=== PATIENT | female | born 1955 | race Caucasian/White ===

== ENCOUNTER 2020-02-01 11:48 | Emergency (ER) | payer OTHER ==
[2020-02-01] MEDS ORDERED: TETRACAINE HCL 0.5% OPH SOLN 4 ML OS ONE (12:09)
--- NOTE | 2020-02-01 12:10 | ER Document Report ---
ED Medical Screen (RME) - General Chief Complaint: Eye Problem Stated Complaint: EYE PROBLEM/DISORIENTED Time Seen by Provider: 02/01/20 12:07 Primary Care Provider: NIKIA BARNETT MD [Primary Care Provider] - Follow up as needed Mode of Arrival: Ambulatory Information source: Patient Notes: 64-year-old female presents emergency department with complaints of she is seeing flashes of light in her peripheral vision with shadowing. Reports symptoms started last night. They come and go. Denies pain denies recent trauma. Reports she gets checked for glaucoma every 6 months because her pressures are off. No other complaint such as fever vomiting diarrhea. She reports she does feel off balance. I have greeted and performed a rapid initial assessment of this patient. A comprehensive ED assessment and evaluation of the patient, analysis of test results and completion of the medical decision making process will be conducted by additional ED providers. TRAVEL OUTSIDE OF THE [place] IN LAST 30 DAYS: No - Related Data Allergies/Adverse Reactions: butorphanol [From Stadol] Allergy (Verified 02/01/20 12:00) clindamycin Allergy (Verified 02/01/20 12:00) codeine Allergy (Verified 02/01/20 12:00) erythromycin base Allergy (Verified 02/01/20 12:00) oxaprozin [From Daypro] Allergy (Verified 02/01/20 12:00) oxycodone [From Percocet] Allergy (Verified 02/01/20 12:00) penicillin G Allergy (Verified 02/01/20 12:00) tramadol [From Ultram] Allergy (Verified 02/01/20 12:00) Home Medications: Encruze. Breo. Combivent. Albuterol. Ibuprofen. Olopatedine Past Medical History - Social History Chew tobacco use (# tins/day): No Frequency of alcohol use: Occasional Drug Abuse: None Psychiatric Medical History: Reports: Hx Depression Physical Exam - Vital signs Vitals: Temp Pulse Resp BP Pulse Ox 98.4 F 77 18 137/54 H 95 02/01/20 11:54 02/01/20 11:54 02/01/20 11:54 02/01/20 11:54 02/01/20 11:54 Course - Vital Signs Vital signs: Temp Pulse Resp BP Pulse Ox 98.4 F 77 18 137/54 H 95 02/01/20 11:54 02/01/20 11:54 02/01/20 11:54 02/01/20 11:54 02/01/20 11:54 Doctor's Discharge - Discharge Referrals: NIKIA BARNETT MD [Primary Care Provider] - Follow up as needed
--- NOTE | 2020-02-01 13:39 | ER Document Report ---
HPI - HPI Time Seen by Provider: 02/01/20 12:07 Pain Level: Denies Notes: Patient is a 64-year-old female who presents complaining of seeing a couple lines in the left peripheral vision and possible small flashes of light intermittently since yesterday. Patient states that her eye doctor has been checking her regularly for her pressures as they are borderline high. She does not wear contact lenses. She has not had any recent illness. She has not noticed any redness or drainage. She does not have any pain associated. Patient states that she does have a little blurring to the peripheral vision. She is otherwise feeling well. Denies any headache, fever, head injury, neck pain, changes in speech/mentation/hearing, URI, sore throat, chest pain, palpitations, syncope, cough, shortness of breath, wheeze, dyspnea, abdominal pain, nausea/vomiting/diarrhea, urinary retention, dysuria, hematuria, or rash. - ROS Systems Reviewed and Negative: Yes All other systems reviewed and negative Past Medical History - General Information source: Patient - Social History Smoking Status: Former Smoker Chew tobacco use (# tins/day): No Frequency of alcohol use: Occasional Drug Abuse: None Family History: None Patient has suicidal ideation: No Patient has homicidal ideation: No Psychiatric Medical History: Reports: Hx Depression Past Surgical History: Reports: Hx Appendectomy, Hx Tonsillectomy Vertical Provider Document - CONSTITUTIONAL Agree With Documented VS: Yes Notes: PHYSICAL EXAMINATION: GENERAL: Well-appearing, well-nourished and in no acute distress. A&Ox4 HEAD: Atraumatic, normocephalic. EYES: Pupils equal round and reactive to light, extraocular movements intact, sclera anicteric, conjunctiva wnl b/l w/o discharge or matting. Non-tender to palp of the globe and eye itself. No surrounding erythema or swelling noted. Wood's lamp/flourescein: No abrasion, laceration, ulceration, or mitzy sign noted. No obvious foreign body appreciated. Tonometry: 23 right eye, 22 left eye US of eye: unremarkable. no obvious acute retinal detachment noted ENT: EAC clear b/l. TM's intact b/l without erythema, fluid, or perforation. Nares patent and without discharge. oropharynx clear without exudates. No tonsilar hypertrophy or erythema. Moist mucous membranes. No sinus tenderness. Uvula midline. No palatine shift. No airway compromise. No drooling or hoarseness. NECK: Normal range of motion, supple without lymphadenopathy. No rigidity/meningismus. LUNGS: Breath sounds clear to auscultation bilaterally and equal. No wheezes rales or rhonchi. HEART: Regular rate and rhythm without murmurs, rubs, gallops. Musculoskeletal: Ext b/l: FROM to passive/active. Strength 5+/5. Extremities: No cyanosis, clubbing, or edema b/l. Peripheral pulses 2+. Capillary refill less than 3 seconds. NEUROLOGICAL: Cranial nerves grossly intact. Normal speech, normal gait. Normal sensory, motor exams PSYCH: Normal mood, normal affect. SKIN: Warm, Dry, normal turgor, no rashes or lesions noted. - INFECTION CONTROL TRAVEL OUTSIDE OF THE [place] IN LAST 30 DAYS: No Course - Re-evaluation Re-evalutation: 02/01/20 13:36 Patient is an afebrile, well-hydrated, 64-year-old female who presents to the emergency department with left eye blurriness. Vitals are acceptable without significant tachycardia, tachypnea, or hypoxia. PE is otherwise unremarkable. Patient is nontoxic-appearing and is able to tolerate p.o. without difficulty. No labs or imaging warranted. US unremarkable of the eye. Tonometry showed pressure of 23 left eye and 22 right eye, baseline per patient. Low suspicion for any retained corneal or lid foreign body, deep space infection including orbital cellulitis/abscess, acute glaucoma, penetrating globe injury, retinal detachment, meningitis, sepsis, fracture, compartment syndrome. Conservative measures otherwise for symptoms with proper handwashing. Recheck with your PCM in 3-5 days. Pt is able to f/u with ophthalmology in the next 1-2 days. Return to the ED with any worsening/concerning symptoms otherwise as reviewed in discharge. Patient is in agreement. Reviewed US prints with Dr. Mathis who is in agreement with dispo/plan. - Vital Signs Vital signs: Temp Pulse Resp BP Pulse Ox 98.4 F 77 18 137/54 H 95 02/01/20 11:54 02/01/20 11:54 02/01/20 11:54 02/01/20 11:54 02/01/20 11:54 Discharge - Discharge Clinical Impression: Blurring, left eye Condition: Stable Disposition: HOME, SELF-CARE Additional Instructions: Keep eyes clean Avoid scratching/touching eyes Wash hands regularly Use eye drops as directed Maintain adequate fluid intake tylenol/ibuprofen as needed over the counter cold medication as needed for symptoms F/u: with your PCM in 2-3 days for a recheck Call and schedule an appointment with your eye doctor in the next 1-2 days. Return to the ED with any worsening symptoms and/or development of fever, headache, changes in vision, eye pain, worsening eye redness, redness around the eyes, purulent discharge, sore throat, facial swelling, neck pain/stiffness, chest pain, palpitations, syncope, shortness of breath, trouble breathing, abdominal pain, n/v/d, blood in stool/urine, dysuria, or other worsening symptoms that are concerning to you. Forms: Elevated Blood Pressure Referrals: NIKIA BARNETT MD [Primary Care Provider] - Follow up as needed JOSELIN HICKS MD [ACTIVE STAFF] - Follow up as needed
[2020-02-01 13:58] VITALS: BP 142/67
== END 2020-02-01 13:56 | disposition home or self-care (01) ==
LOC: ER 11:48
DX: H53.8 Other visual disturbances (principal); Z87.891 Personal history of nicotine dependence
CPT/HCPCS: 99283; J3490

== ENCOUNTER → 2020-02-12 | Outpatient (CLI) | payer OTHER | LOC: OD 11:50 | PROVIDERS: ATTEND Internal Medicine Geriatric Medicine | DX: G43.B0 Ophthalmoplegic migraine, not intractable (principal) | CPT/HCPCS: 36415; 85652; 86140 ==

== ENCOUNTER 2020-08-20 15:00 | Emergency (ER) | payer OTHER ==
--- NOTE | 2020-08-20 15:57 | RADIOLOGY REPORT (SQ) ---
EXAM DESCRIPTION: CHEST SINGLE VIEW IMAGES COMPLETED DATE/TIME: 08/20/2020 3:40 pm REASON FOR STUDY: cough chest pressure COMPARISON: Two-view chest 10/29/2016 EXAM PARAMETERS: NUMBER OF VIEWS: One view. TECHNIQUE: Single frontal radiographic view of the chest acquired. RADIATION DOSE: NA LIMITATIONS: None. FINDINGS: LUNGS AND PLEURA: No opacities, masses or pneumothorax. No pleural effusion. MEDIASTINUM AND HILAR STRUCTURES: No masses. Contour normal. HEART AND VASCULAR STRUCTURES: Heart normal in size. Normal vasculature. BONES: No acute findings. HARDWARE: None in the chest. OTHER: No other significant finding. IMPRESSION: NO ACUTE RADIOGRAPHIC FINDING IN THE CHEST. TECHNICAL DOCUMENTATION: JOB ID: [id number] 2010 [employer]- All Rights Reserved Reading location - IP/workstation name: [email or web address]
[2020-08-20] MEDS ORDERED: IPRATROPIUM/ALBUTEROL 0.5-2.5 MG/3 ML AMPUL NEB ONE (16:40)
[2020-08-20] MEDS ORDERED: METHYLPREDNISOLONE INJ 125 MG/2 ML SDV IV ONE (16:40)
--- NOTE | 2020-08-20 16:42 | ER Document Report ---
ED Respiratory Problem - General Chief Complaint: Shortness Of Breath Stated Complaint: SHORTNESS OF BREATH/FEVER Time Seen by Provider: 08/20/20 16:11 Primary Care Provider: NIKIA BARNETT MD [Primary Care Provider] - 08/23/20 Mode of Arrival: Ambulatory Information source: Patient Notes: Patient presents complaining of fever that started yesterday of 101 and today was 99. Patient reports sore throat, wheezing and nonproductive cough for the past 3 days. Patient saw her primary doctor yesterday and had a negative flu and strep test in the office. She was advised that she had asthmatic bronchitis and was given Tessalon Perles, doxycycline and prednisone. Patient reports worsening symptoms which caused her to come in today. Patient denies any chest pain, nausea or vomiting. TRAVEL OUTSIDE OF THE [place] IN LAST 30 DAYS: No - HPI Patient complains to provider of: Asthma, COPD, Cough, Short of breath. No: Chest pain Onset: Other - 3 days Duration: Worse/persistent Quality of pain: No pain Context: Hx asthma, Hx COPD Cough: Nonproductive At home treatment: Bronchodilators, CPAP Associated symptoms: Congestion, Cough, Difficulty breathing, Short of breath, Sore Throat, Wheezing. denies: Chest pain/discomfort Similar symptoms previously: Yes Recently seen / treated by doctor: Yes - Related Data Allergies/Adverse Reactions: butorphanol [From Stadol] Allergy (Verified 08/20/20 15:16) clindamycin Allergy (Verified 08/20/20 15:16) codeine Allergy (Verified 08/20/20 15:16) erythromycin base Allergy (Verified 08/20/20 15:16) oxaprozin [From Daypro] Allergy (Verified 08/20/20 15:16) oxycodone [From Percocet] Allergy (Verified 08/20/20 15:16) penicillin G Allergy (Verified 08/20/20 15:16) tramadol [From Ultram] Allergy (Verified 08/20/20 15:16) Home Medications: see note. copd medication. metformin. statin. januvia. atb Past Medical History - General Information source: Patient - Social History Smoking Status: Former Smoker Chew tobacco use (# tins/day): No Frequency of alcohol use: Occasional Drug Abuse: None Occupation: Delivers advertisements Lives with: Family Family History: None Patient has homicidal ideation: No - Past Medical History Cardiac Medical History: Reports: Hx Hypercholesterolemia Pulmonary Medical History: Reports: Hx Asthma, Hx Bronchitis, Hx COPD Endocrine Medical History: Reports: Hx Diabetes Mellitus Type 2 Psychiatric Medical History: Reports: Hx Depression Past Surgical History: Reports: Hx Adenoidectomy, Hx Appendectomy, Hx Tonsillectomy Review of Systems - Review of Systems Constitutional: No symptoms reported. denies: Fever EENT: Nose congestion, Nose discharge, Throat pain Cardiovascular: No symptoms reported. denies: Chest pain Respiratory: Cough, Short of breath, Wheezing Gastrointestinal: No symptoms reported. denies: Abdominal pain, Vomiting Genitourinary: No symptoms reported Female Genitourinary: No symptoms reported Musculoskeletal: No symptoms reported Skin: No symptoms reported Hematologic/Lymphatic: No symptoms reported Neurological/Psychological: No symptoms reported Physical Exam - Vital signs Vitals: Temp Pulse Resp BP Pulse Ox 98.8 F 67 20 132/61 H 93 08/20/20 15:14 08/20/20 15:14 08/20/20 15:14 08/20/20 15:14 08/20/20 15:14 - Notes Notes: PHYSICAL EXAMINATION: GENERAL: Well-appearing and in no acute distress. HEAD: Atraumatic, normocephalic. EYES: sclera anicteric, conjunctiva are normal. ENT: Posterior pharynx clear without exudates, nares patent. Moist mucous membranes. NECK: Normal range of motion, supple without lymphadenopathy LUNGS: Respirations unlabored, no tachypnea, patient with wheezing bilaterally and occasional rhonchi with cough HEART: Regular rate and rhythm without murmurs ABDOMEN: Soft, nontender, normal bowel sounds, no guarding. EXTREMITIES: Normal range of motion, no pitting edema. No cyanosis. BACK: No CVA tenderness NEUROLOGICAL: Cranial nerves grossly intact. Normal speech. PSYCH: Normal mood, normal affect. SKIN: Warm, Dry, normal turgor, no rashes or lesions noted Course - Re-evaluation Re-evalutation: 08/20/20 17:58 RN states that when she repeated vitals, patient's oxygen saturation was 86, oxygen at 2 L was applied and oxygen saturation increased to 94% on 2 L. 08/20/20 21:03 Patient reports feeling improvement after additional nebulizer treatment. Patient was removed from oxygen and ambulated in the hallway. Patient was able to maintain oxygen saturations above 93%. CTA report reviewed, no evidence of any PE. 08/20/20 21:12 Patient with only faint scattered wheeze noted to right upper lobe, no tachypnea or increased work of breathing at this time. Patient without any chest pain sy mptoms. Patient nontoxic in appearance. Review of patient's recent prescriptions demonstrates she does have a prescription for steroids that she needs to pick remover. Patient encouraged to follow-up with her primary care provider on Sunday for recheck. Patient encouraged to return over the weekend f or any problems. 08/20/20 21:18 The patient was evaluated during the global Covid 19 pandemic, and that diagnosis was suspected/considered upon their initial presentation. Their evaluation, treatment and testing was consistent with current guidelines for patients who present with complaints or symptoms that may be related to Covid 19. - Vital Signs Vital signs: Temp Pulse Resp BP Pulse Ox 97.9 F 72 14 136/57 H 92 08/20/20 21:53 08/20/20 21:53 08/20/20 21:53 08/20/20 21:53 08/20/20 21:53 - Laboratory Result Diagrams: 08/20/20 16:25 08/20/20 16:25 Laboratory results interpreted by me: 08/20/20 08/20/20 08/20/20 16:25 16:25 17:12 RDW 14.1 H Eos % (Auto) 8.9 H ABG pO2 73.0 L ABG HCO3 25.4 H ABG Total CO2 26.7 H AST 44 H ALT 37 H Urine Ascorbic Acid 08/20/20 19:00 RDW Eos % (Auto) ABG pO2 ABG HCO3 ABG Total CO2 AST ALT Urine Ascorbic Acid 40 H Labs- All tests 24 hr 08/20/20 08/20/20 08/20/20 16:25 16:25 16:25 WBC 7.0 RBC 4.45 Hgb 12.8 Hct 37.8 MCV 85 MCH 28.8 MCHC 34.0 RDW 14.1 H Plt Count 231 Lymph % (Auto) 17.5 Harlan % (Auto) 11.8 Eos % (Auto) 8.9 H Baso % (Auto) 0.9 Absolute Neuts (auto) 4.3 Absolute Lymphs (auto) 1.2 Absolute Monos (auto) 0.8 Absolute Eos (auto) 0.6 Absolute Basos (auto) 0.1 Seg Neutrophils % 60.9 Carbonic Acid HCO3/H2CO3 Ratio ABG pH ABG pCO2 ABG pO2 ABG HCO3 ABG Total CO2 ABG O2 Saturation ABG Base Excess FiO2 Sodium 142.1 Potassium 4.3 Chloride 106 Carbon Dioxide 27 Anion Gap 9 BUN 13 Creatinine 0.74 Est GFR ( Amer) > 60 Est GFR (MDRD) Non-Af > 60 Glucose 86 Calcium 9.2 Total Bilirubin 0.5 Direct Bilirubin 0.4 Neonat Total Bilirubin Not Reportable Neonat Direct Bilirubin Not Reportable Neonat Indirect Bili Not Reportable AST 44 H ALT 37 H Alkaline Phosphatase 121 Troponin I < 0.012 Total Protein 7.7 Albumin 4.3 Urine Color Urine Appearance Urine pH Ur Specific Zenda Urine Protein Urine Glucose (UA) Urine Ketones Urine Blood Urine Nitrite Urine Bilirubin Urine Urobilinogen Ur Leukocyte Esterase Urine WBC (Auto) Urine RBC (Auto) U Hyaline Cast (Auto) Squamous Epi Cells Auto Urine Ascorbic Acid COVID-19 Source 08/20/20 08/20/20 08/20/20 16:59 17:12 19:00 WBC RBC Hgb Hct MCV MCH MCHC RDW Plt Count Lymph % (Auto) Harlan % (Auto) Eos % (Auto) Baso % (Auto) Absolute Neuts (auto) Absolute Lymphs (auto) Absolute Monos (auto) Absolute Eos (auto) Absolute Basos (auto) Seg Neutrophils % Carbonic Acid 1.21 HCO3/H2CO3 Ratio 20:1 ABG pH 7.42 ABG pCO2 40.2 ABG pO2 73.0 L ABG HCO3 25.4 H ABG Total CO2 26.7 H ABG O2 Saturation 95.0 ABG Base Excess 0.9 FiO2 ROOM AIR Sodium Potassium Chloride Carbon Dioxide Anion Gap BUN Creatinine Est GFR ( Amer) Est GFR (MDRD) Non-Af Glucose Calcium Total Bilirubin Direct Bilirubin Neonat Total Bilirubin Neonat Direct Bilirubin Neonat Indirect Bili AST ALT Alkaline Phosphatase Troponin I Total Protein Albumin Urine Color STRAW Urine Appearance CLEAR Urine pH 6.0 Ur Specific Zenda 1.011 Urine Protein NEGATIVE Urine Glucose (UA) NEGATIVE Urine Ketones NEGATIVE Urine Blood NEGATIVE Urine Nitrite NEGATIVE Urine Bilirubin NEGATIVE Urine Urobilinogen NEGATIVE Ur Leukocyte Esterase NEGATIVE Urine WBC (Auto) 0 Urine RBC (Auto) 0 U Hyaline Cast (Auto) 1 Squamous Epi Cells Auto 1 Urine Ascorbic Acid 40 H COVID-19 Source See comment - Diagnostic Test Radiology reviewed: Image reviewed, Reports reviewed - EKG Interpretation by Me EKG shows normal: Sinus rhythm Rate: Normal Rhythm: Other - Irregular rhythm When compared to previous EKG there are: Changes noted Additional EKG results interpreted by me: 08/20/20 21:16 rate of 72, QTc 451, no acute ischemic changes Discharge - Discharge Clinical Impression: COPD with acute exacerbation, Encounter for screening laboratory testing for COVID-19 virus Asthma Qualifiers: Asthma severity: unspecified severity Asthma persistence: unspecified Asthma complication type: unspecified Qualified Code(s): J45.909 - Unspecified asthma, uncomplicated Condition: Stable Disposition: HOME, SELF-CARE Instructions: COVID-19 Guidance for Persons Under Investigation, Asthma ([facility]), Chronic Obstructive Lung Disease ([facility]), Inhaled Bronchodilators ([facility]) Additional Instructions: Return immediately for any new or worsening symptoms Followup with your primary care provider, call Sunday to make a followup appointment Take your medications that your doctor prescribed as directed. Referrals: NIKIA BARNETT MD [Primary Care Provider] - 08/23/20
[2020-08-20 17:04] LABS: ABSOLUTE BASOPHILS # (AUTO) 0.1 10^3/uL (0.0-0.2); ABSOLUTE EOSINOPHILS # (AUTO) 0.6 10^3/uL (0.0-0.6); ABSOLUTE LYMPHOCYTES (AUTO) 1.2 10^3/uL (0.5-4.7); ABSOLUTE MONOCYTES (AUTO) 0.8 10^3/uL (0.1-1.4); ABSOLUTE NEUT (AUTO) 4.3 10^3/uL (1.7-8.2); BASOPHILS % (AUTO) 0.9 % (0-2); EOSINOPHILS % (AUTO) 8.9 % (0-6); HEMATOCRIT 37.8 % (36.0-47.0); HEMOGLOBIN 12.8 g/dL (12.0-15.5); LYMPHOCYTES % (AUTO) 17.5 % (13-45); MEAN CORPUSCULAR HEMOGLOBIN 28.8 pg (27.0-33.4); MEAN CORPUSCULAR VOLUME 85 fl (80-97); MONOCYTES % (AUTO) 11.8 % (3-13); PLATELET COUNT 231 10^3/uL (150-450); RED BLOOD COUNT 4.45 10^6/uL (3.72-5.28); RED CELL DISTRIBUTION WIDTH 14.1 % (11.5-14.0); SEGMENTED NEUTROPHILS % (AUTO) 60.9 % (42-78); TOTAL CELLS COUNTED % (AUTO) 100 %
[2020-08-20 17:13] LABS: ALBUMIN 4.3 g/dL (3.5-5.0); ALKALINE PHOSPHATASE 121 U/L (38-126); ANION GAP 9 (5-19); ASPARTATE AMINO TRANSFERASE 44 U/L (14-36); BILIRUBIN,DIRECT 0.4 mg/dL (0.0-0.4); BILIRUBIN,TOTAL 0.5 mg/dL (0.2-1.3); BLOOD UREA NITROGEN 13 mg/dL (7-20); CALCIUM 9.2 mg/dL (8.4-10.2); CARBON DIOXIDE 27 mmol/L (22-30); CHLORIDE 106 mmol/L (98-107); GLUCOSE 86 mg/dL (75-110); POTASSIUM 4.3 mmol/L (3.6-5.0); TOTAL PROTEIN 7.7 g/dL (6.3-8.2)
[2020-08-20 17:45] LABS: ARTERIAL BLOOD BASE EXCESS 0.9 mmol/L; ARTERIAL BLOOD H2CO3 1.21 mmol/L (1.05-1.35); ARTERIAL BLOOD HCO3 25.4 mmol/L (20-24); ARTERIAL BLOOD PCO2 40.2 mmHg (35-45); ARTERIAL BLOOD PH 7.42 (7.35-7.45); ARTERIAL BLOOD TOTAL CO2 26.7 mmol/L (21-25)
[2020-08-20 17:46] LABS: ARTERIAL BLOOD FIO2 ROOM AIR
[2020-08-20] MEDS ORDERED: ALBUTEROL SULFATE 0.083% NEB 2.5 MG/3 ML AMPUL NEB ONE (17:58)
[2020-08-20 19:38] LABS: APPEARANCE,URINE CLEAR; BILIRUBIN,URINE NEGATIVE (NEGATIVE); COLOR,URINE STRAW; GLUCOSE, URINE NEGATIVE (NEGATIVE); KETONES,URINE NEGATIVE (NEGATIVE); LEUKOCYTE ESTERASE,URINE NEGATIVE (NEGATIVE); NITRITE,URINE NEGATIVE (NEGATIVE); PROTEIN,URINE NEGATIVE (NEGATIVE); URINE SPECIFIC GRAVITY 1.011; UROBILINOGEN,URINE NEGATIVE mg/dL (<2.0)
--- NOTE | 2020-08-20 20:30 | RADIOLOGY REPORT (SQ) ---
EXAM DESCRIPTION: CT CHEST ANGIOGRAPHY WITH IV CONTRAST COMPLETED DATE/TME: 08/20/2020 18:44 CLINICAL HISTORY: 65 years, Female, cough, hypoxia COMPARISON: Chest x-ray from today. TECHNIQUE: Axial images with 80 mL of Omnipaque 350. MIP reconstruction. Images stored on PACS. All CT scanners at this facility use dose modulation, iterative reconstruction, and/or weight based dosing when appropriate to reduce radiation dose to as low as reasonably achievable (ALARA). : FINDINGS: No evidence for pulmonary embolus. Aorta is unremarkable. Mild left cardiomegaly. No evidence for mediastinal adenopathy or pericardial effusion. [id number] centrilobular emphysema in the upper lung francois. Minimal bibasilar atelectasis. No suspicious consolidation or pleural effusion. Mild dextroscoliosis. Limited images of the upper abdomen suggest borderline fatty liver.. IMPRESSION: 1. No evidence for pulmonary embolus. 2. [id number] upper lung centrilobular emphysema. 3. Minimal bibasilar atelectasis. No significant acute lung abnormality. 4. Mild fatty liver.
--- NOTE | 2020-08-20 21:23 | EKG REPORT ---
SEVERITY:- ABNORMAL ECG - SINUS BRADYCARDIA WITH INTERMITTENT JUNCTIONAL RHYTHM. : Confirmed by: Vanessa Pina MD 20-Aug-2020 21:22:58
[2020-08-20 22:05] VITALS: BP 136/57
== END 2020-08-20 22:06 | disposition home or self-care (01) ==
LOC: ER 15:00
DX: J44.1 Chronic obstructive pulmonary disease with (acute) exacerbation (principal); R50.9 Fever, unspecified; Z20.828 Contact with and (suspected) exposure to other viral communicable diseases; E78.00 Pure hypercholesterolemia, unspecified; E11.9 Type 2 diabetes mellitus without complications; Z79.84 Long term (current) use of oral hypoglycemic drugs
CPT/HCPCS: 93005; 94640 ×2; 99285; 96374; 36415; 82803; 85025; 87635; 80053; 81001; 84484; 71045; 71275; 93010; J2930; J7613; C9803

== ENCOUNTER → 2020-10-04 | Outpatient (CLI) | payer OTHER ==
--- NOTE | 2020-10-04 16:16 | RADIOLOGY REPORT (SQ) ---
EXAM DESCRIPTION: CT SOFT TISSUE NECK WITH IMAGES COMPLETED DATE/TIME: 10/04/2020 3:21 pm REASON FOR STUDY: R59.0 LOCALIZED ENLARGED LYMPH NODES R59.0 LOCALIZED ENLARGED LYMPH NODES COMPARISON: None. TECHNIQUE: Post IV contrasted scanning from skull base through lung apices with review of bone, soft tissue and lung windows. Reconstructed coronal and sagittal MPR images reviewed. All images stored on PACS. All CT scanners at this facility use dose modulation, iterative reconstruction, and/or weight based d osing when appropriate to reduce radiation dose to as low as reasonably achievable (ALARA). [facility]: Dose Right [facility]: CareDose [facility]: Dose Right [facility]: Teradose 4D [facility]: [email or web address] CONTRAST TYPE AND DOSE: contrast/concentration: Isovue 350.00 mmol/ml; Total Contrast Delivered: 75. 0 ml; Total Saline Delivered: 55.0 ml RENAL FUNCTION: GFR > 60. RADIATION DOSE: . LIMITATIONS: Jewelry artifact. FINDINGS: SKULL BASE: Intact. MAJOR SALIVARY GLANDS: No solid or cystic masses. No inflammatory changes. LYMPHADENOPATHY: No adenopathy. MUCOSAL MASSES OR ASYMMETRY: No mucosal masses or asymmetry. LARYNX/CORDS: No abnormal findings. VASCULAR STRUCTURES: The major vessels are patent. LUNG APICES: Clear. BONES: Intact. THYROID: Normal size. No masses. PARANASAL SINUSES: Clear. OTHER: No other significant finding. IMPRESSION: NO SIGNIFICANT FINDING IN THE SOFT TISSUES OF THE NECK. TECHNICAL DOCUMENTATION: JOB ID: [id number] Quality ID # [id number]: Final reports with documentation of one or more dose reduction techniques (e.g., Au tomated exposure control, adjustment of the mA and/or kV according to patient size, use of iterative reconstruction technique) 2010 [employer]- All Rights Reserved Reading location - IP/workstation name: [email or web address]
== END ==
LOC: RAD 14:49
PROVIDERS: ATTEND Nurse Practitioner Adult Health
DX: R59.0 Localized enlarged lymph nodes (principal)
CPT/HCPCS: 70491; 82565